=== PATIENT | female | born 1985 | race Two or more races ===

== ENCOUNTER 2018-01-30 11:56 | Outpatient (CLI) | payer OTHER | END 2018-01-30 12:05 | disposition home or self-care (01) | LOC: RAD 501 11:56 | DX: M99.01 Segmental and somatic dysfunction of cervical region (principal); M99.02 Segmental and somatic dysfunction of thoracic region; M99.03 Segmental and somatic dysfunction of lumbar region ==

== ENCOUNTER 2019-04-30 11:32 | Outpatient (CLI) | payer OTHER | END 2019-04-30 11:42 | disposition home or self-care (01) | LOC: RAD 11:32 | DX: M25.571 Pain in right ankle and joints of right foot (principal) ==

== ENCOUNTER 2023-07-03 07:53 | Outpatient (CLI) | payer OTHER | END 2023-07-03 08:07 | disposition home or self-care (01) | LOC: MAMO-SONO 07:53 | PROVIDERS: ATTEND Obstetrics & Gynecology Maternal & Fetal Medicine | DX: N63 Unspecified lump in breast (principal); Z12.31 Encounter for screening mammogram for malignant neoplasm of breast; N64.4 Mastodynia; N60.11 Diffuse cystic mastopathy of right breast ==

== ENCOUNTER 2024-07-31 13:07 | Outpatient (CLI) | payer OTHER | END 2024-07-31 13:14 | disposition home or self-care (01) | LOC: MAMO-SONO 13:07 | PROVIDERS: ATTEND Obstetrics & Gynecology Maternal & Fetal Medicine | DX: N63 Unspecified lump in breast (principal); Z12.31 Encounter for screening mammogram for malignant neoplasm of breast ==